=== PATIENT | male | born 1975 | race Caucasian/White ===

== ENCOUNTER 2021-04-26 10:17 | Emergency (ER) | payer OTHER, MEDICAID, SELFPAY ==
--- NOTE | ~2021-04-26 | XR_ITS ---
EXAMINATION: XR HAND/WRIST, LEFT CLINICAL INFORMATION: Nail through the thumb. COMPARISON: None TECHNIQUE: Three views. FINDINGS: There is a radiopaque foreign body/nail seen traversing the palmar aspect of the distal left thumb. No bony abnormality is seen. The joint spaces are normal. The rest of the left hand digits and the wrist is unremarkable. XR/XR hand wrist LT IMPRESSION: Radiopaque nail traversing the palmar aspect of left distal thumb. No bony abnormality seen.
[2021-04-26 10:22] VITALS: BP 128/83; PULSE 66; RESP 18; TEMP 37.1; O2SAT 94; BMI 22.8
--- NOTE | 2021-04-26 10:41 | ED.EXTPRO ---
HPI - Extremity Problem General Chief complaint: Extremity Injury, Upper Stated complaint: wound Time Seen by Provider: 04/26/21 10:40 Source: patient Mode of arrival: ambulatory Limitations: no limitations History of Present Illness HPI Narrative: Patient is a 45-year-old male with no significant past medical history who shot himself in the left thumb with a nail gun at work this morning. He can move the finger and has full sensitivity. He does state it is painful. Related Data Allergies Allergy/AdvReac Type Severity Reaction Status Date / Time codeine AdvReac Agitated Verified 04/26/21 10:25 Review of Systems Review of Systems: Yes all other systems are reviewed and are negative PMFSH Past Medical History Medical History Patient denies medical problems Social History Social History Advance Directives: No Advance Directives Information Provided: No Physical Exam Vital Signs: Vital Signs: Last Vital Signs Temp 98.7 F 04/26/21 10:22 Pulse 66 04/26/21 10:22 Resp 18 04/26/21 10:22 BP 128/83 04/26/21 10:22 Pulse Ox 94 04/26/21 10:22 Body Mass Index 22.8 Const: General: cooperative, healthy appearing, comfortable, no acute distress and well developed Orientation/consciousness: patient oriented x3 Limitations: no limitations Skin: Other: Left 1st digit has a nail traversing the palmar aspect of the distal them. Approximately 5 cm of a nail sticking out the and. Nail head is not in sight and is likely imbedded Neuro: General: patient oriented x3 Procedures Procedure Narrative Procedure Narrative: He cleaned and irrigated wound with Betadine and saline, digital block with 1% lidocaine, made a small incision around nail head at ventral aspect of the thumb and pulled nail all the way out. No complications, no bleeding. Patient tolerated procedure well. Cleaned again with Betadine, covered with sterile dressing. MDM - Extremity (Nontraumatic) Imaging Data left hand x-ray: Attestation: I personally reviewed and interpreted this imaging study as follows: Radiologist's impression: [address] [id number] ReportSigned Patient: Rayo Eden [facility]#: [id number]: 1975Acct:[id number]/Sex: 45 / MADM Date: 04/26/21Loc: EDAttending Dr: Ordering Physician: Tahmina Peck PA-C Date of Service: 04/26/21 Procedure(s): XR hand wrist LT Accession Number(s): [id number] cc: Tahmina Peck PA-C~ EXAMINATION: XR HAND/WRIST, LEFT CLINICAL INFORMATION: Nail through the thumb. COMPARISON: None TECHNIQUE: Three views. FINDINGS: There is a radiopaque foreign body/nail seen traversing the palmar aspect of the distal left thumb. No bony abnormality is seen. The joint spaces are normal. The rest of the left hand digits and the wrist is unremarkable. XR/XR hand wrist LT IMPRESSION: Radiopaque nail traversing the palmar aspect of left distal thumb. No bony abnormality seen. 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 Keep it clean and dry. You do not need to apply any special ointments. If it becomes painful her you sensation in the thumb or you notice red streaking going up her arm, please return to the emergency department or follow-up with her primary care doctor.
--- NOTE | 2021-04-26 12:10 | PC.NURSE ---
Pt has been soaking injured thumb in betadine and NS. tolerating removal well.
[2021-04-26] MEDS: Diphth,Pertus(ACell),Tet Adult 0.5 ML SYRINGE IM (12:41)
[2021-04-26] MEDS: Lidocaine HCl 1 % 20 ML VIAL 5 ML SUBCUT (12:41)
== END 2021-04-26 12:47 | disposition home or self-care (01) ==
PROVIDERS: Emergency Provider Emergency Medicine; PCP Internal Medicine
DX: S61.142A Puncture wound with foreign body of left thumb with damage to nail, initial encounter (principal); W29.4XXA Contact with nail gun, initial encounter; Y93.9 Activity, unspecified; Y92.9 Unspecified place or not applicable; Y99.0 Civilian activity done for income or pay
CPT/HCPCS: 96372; 20520; 73110; 73130; 90715; 99282

== ENCOUNTER 2021-07-24 23:06 | Inpatient (IN) | payer OTHER, SELFPAY ==
--- NOTE | 2021-07-25 | ECG_ITS ---
Test Reason : COCAINE INDEPENDENCE Blood Pressure : / mmHG Vent. Rate : 065 BPM Atrial Rate : 065 BPM P-R Int : 128 ms QRS Dur : 082 ms QT Int : 370 ms P-R-T Axes : 076 082 079 degrees QTc Int : 384 ms Normal sinus rhythm Nonspecific T wave abnormality Abnormal ECG No previous ECGs available Referred By: Praful Martinez Electronically Signed By:LAKESHA AMBROSIO MD
[2021-07-25 01:02] VITALS: BP 145/93; PULSE 71; RESP 20; TEMP 36.6; O2SAT 97
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
[2021-07-25 07:00] VITALS: BMI 24.6
[2021-07-25 09:21] VITALS: BP 133/81; PULSE 98; TEMP 35.8; O2SAT 98
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
[2021-07-25 14:49] LABS: MANUAL DIFF FLAG NO
[2021-07-25 15:02] LABS: Basophils Percent Auto 0.3 % (0-2); Eosinophils Absolute Auto 0.4 X10*3/uL (0.0-0.4); Eosinophils Percent Auto 4.4 % (0-4); Hematocrit 45.2 % (42-52); Hemoglobin 15.4 g/dl (14.0-18.0); Imm Gran Abs Auto 0.02 X10*3/uL (0.00-0.03); Imm Gran Pct Auto 0.2 % (0.0-0.4); Lymphocytes Absolute Auto 1.7 X10*3/uL (1.2-4.9); Mean Corpuscular HGB Conc 34.1 g/dl (31.0-36.0); Mean Corpuscular Hemoglobin 31.9 pg (27.0-33.0); Mean Corpuscular Volume 93.6 fL (80-98); Mean Platelet Volume 9.9 fL (9.4-12.4); Monocytes Absolute Auto 0.9 X10*3/uL (0.1-1.2); Monocytes Percent Auto 8.6 % (2-11); Neutrophils Percent Auto 69.5 % (45-73); Platelet Count 300 X10*3/uL (160-400); Red Blood Count 4.83 X10*6/uL (4.60-5.80); Red Cell Distribution Width 13.2 % (11.0-16.0); White Blood Count 10.1 X10*3/uL (4.8-10.8)
[2021-07-25 15:13] LABS: Alanine Aminotransferase 16 U/L (0-40); Albumin Level 3.9 g/dL (3.5-5.0); Alkaline Phosphatase 98 U/L (39-117); Anion Gap 10 (12-20); Aspartate Amino Transferase 18 U/L (5-37); Bilirubin Total < 0.2 mg/dL (0.0-1.0); Blood Urea Nitrogen 23 mg/dL (9-16); Calcium 9.3 mg/dL (8.4-10.2); Carbon Dioxide 31 mmol/L (22-29); Chloride 105 mmol/L (96-108); Cholesterol 131 mg/dL; Creatinine Clr Calc Pharmacy 81.3; Estimated Glomerular Filt Rate > 60; Glucose Random 67 mg/dL (60-115); HDL Cholesterol 37 mg/dL; LDL Cholesterol Calculated 40 mg/dl; Potassium 4.6 mmol/L (3.3-5.1); Sodium 141 mmol/L (135-145); Total Protein 6.8 g/dL (6.5-8.0); Triglycerides 271 mg/dL
[2021-07-25 15:28] LABS: TSH reflex Free T4 0.78 uIU/mL (0.32-4.0)
[2021-07-25 17:36] LABS: Folate 11.4 ng/mL (> or = 4.0); Vitamin B12 523 pg/mL (200-900)
[2021-07-26 06:00] VITALS: BP 128/77; PULSE 55; RESP 16; TEMP 36.4; O2SAT 98
--- NOTE | 2021-07-26 10:49 | PC.NURSE ---
Pt offered flu shot. Pt declined stating he already received it.
--- NOTE | 2021-07-26 10:54 | PM.IMCN ---
History of Present Illness Data of Consult Service Date: 07/26/21 Primary Care Provider: Unknown Physician HPI Reason for consult: Routine Medical Consult This is a who is admitted to the inpatient psych unit. Medical consultation requested for Medical history and physical per protocol. Patient is seen and examined on the inpatient psych unit. Patient thinks that he has colon cancer. He reports that for months he has had intermittent lower GI bleeding. He reports being constipated. He reports that he has a primary doctor who has scheduled him for a colonoscopy but that he missed it. He denies any weight loss, abdominal pain, nausea or vomiting. He denies any family history for colon cancer, but does endorse that his younger brother from lung Ca recently. Review of Systems Review of Systems: +rectal bleeding, no abdominal pain, nausea, vomiting; +constipation denies cp or sob denies [place], dizziness denies loss of appetite or weight loss +depression Yes all other systems are reviewed and are negative [facility] Medical History (Updated 07/26/21 @ 11:07 by Benji Aburto MD) Patient denies medical problems Pertinent family history: reports his younger brother of Lung Ca Surgical History (Updated 07/26/21 @ 11:02 by Benji Aburto MD) No pertinent past surgical history Social History Household Members: Significant Other and Children Household Members Other:: currently living at her parents house in [place] Housing: Homeless Do you presently have visiting nurse or other home services: No Patient Tobacco Use Status: Current everyday Tobacco user Tobacco use type: Cigarette Cigarette Packs Per Day: 0.5 Cigarettes Per Day: 10.0 Smoked in Last 30 Days: Yes e-Cigarette/Vaping Use: Never Used Patient Interested in Nicotine Replacement: No (I can quit without nicotine replacement) Patient Given Instructions on How to Stop Smoking: No (patient states I stopped today .) Second Hand Smoke Exposure: No Use of substances other than those prescribed or required for medical reasons: Yes Substance Use Type: Crack/Cocaine Substance Use Frequency: Daily Last Used Substance: Days (ago) Last Used Substance Other:: 07/24/2021 Currently Displaying Signs/Symptoms of Drug Intoxication Withdrawal: No Any prior treatment program specific to substance use: No Have you been hit, kicked, punched, or otherwise hurt by someone within the past year? If so, by whom?: No Do you feel safe in your current relationship?: Yes Is there a partner from a previous relationship who is making you feel unsafe now?: No Are you made to feel afraid or neglected: No Spiritism Healthcare Practices: I believe in GOD and he will help me . Advance Directives: No Do you have thoughts of harming others: None Do you have a plan to hurt others: No Plan Recently lost weight without trying: No How much weight loss: Not applicable Eating poorly because of decreased appetite: No Nutrition screen score: 0 Nutrition Risks: No Nutritional Risk Poor oral hygiene: No service: No Sexual orientation: Did not discuss Meds Allergies Allergy/AdvReac Type Severity Reaction Status Date / Time codeine AdvReac Agitated Verified 04/26/21 10:25 Active Medications: Current Medications Acetaminophen (Acetaminophen 325 Mg Tablet) 650 mg PO Q6H PRN PRN Reason: Headache/Pain Mild Scale (1-3) Al Hydroxide/Mg Hydroxide (Magnesium Hydrox/Alum Hydrox 30 Ml Oral.Susp) 30 ml PO Q6H PRN PRN Reason: Heartburn/Nausea Hydroxyzine HCl (Hydroxyzine Hcl 25 Mg Tablet) 25 mg PO BEDTIME PRN PRN Reason: Anxiety Lorazepam (Lorazepam 1 Mg Tablet) 1 mg PO TID PRN PRN Reason: Anxiety Magnesium Hydroxide (Milk Of Magnesia 30 Ml Oral.Susp) 30 ml PO DAILY PRN PRN Reason: Constipation Quetiapine Fumarate (Quetiapine Fumarate 25 Mg Tablet) 25 mg PO Q4H PRN PRN Reason: Anxiety Trazodone HCl (Trazodone Hcl 50 Mg Tablet) 50 mg PO BEDTIME PRN PRN Reason: Insomnia Physical Exam Vital Signs and Narrative: Vital Signs: Last Vital Signs Temp 97.6 F 07/26/21 06:00 Pulse 55 07/26/21 06:00 Resp 16 07/26/21 06:00 BP 128/77 07/26/21 06:00 Pulse Ox 98 07/26/21 06:00 Body Mass Index 24.6 Const: Other: Constitutional - Awake and Alert, No apparent distress Eyes - PERRLA, EOMI Cardiovascular - S1S2, RRR, No edema Respiratory - Normal lung expansion, Normal respiratory effort, No respiratory distress, CTA bilaterally Gastrointestinal - NT / ND; +BS; No rebound or guarding - No CVA tenderness Extremities - no calf tenderness bilaterally, no swelling Musculoskeletal - Normal inspection, normal ROM Skin - Warm/Dry Neurological - Alert & oriented x3, No focal deficit Psychological - Appropriate affect Results Labs CBC and Chem 7: 07/25/21 14:44 07/25/21 14:44 Labs: Laboratory Results - last 24 hr 07/25/21 07/25/21 07/25/21 14:44 14:44 14:44 MCV 93.6 MCH 31.9 MCHC 34.1 RDW 13.2 Plt Count 300 MPV 9.9 Immature Gran % (Auto) 0.2 Neut % (Auto) 69.5 Lymph % (Auto) 17.0 L [place] % (Auto) 8.6 Eos % (Auto) 4.4 H Baso % (Auto) 0.3 Lymph # (Auto) 1.7 Cecil # (Auto) 0.9 Eos # (Auto) 0.4 Baso # (Auto) 0.0 Abs Immat Gran (auto) 0.02 Absolute Neuts (auto) 7.0 Absolute Nucleated RBC 0.000 Nucleated RBC % (auto) 0.0 Anion Gap 10 L Estim Creat Clear Calc 81.3 Estimated GFR > 60 Random Glucose 67 Calcium 9.3 Total Bilirubin < 0.2 AST 18 ALT 16 Alkaline Phosphatase 98 Total Protein 6.8 Albumin 3.9 Triglycerides 271 Cholesterol 131 LDL Cholesterol, Calc 40 HDL Cholesterol 37 Vitamin B12 Folate TSH 0.78 07/25/21 14:44 MCV MCH MCHC RDW Plt Count MPV Immature Gran % (Auto) Neut % (Auto) Lymph % (Auto) Cecil % (Auto) Eos % (Auto) Baso % (Auto) Lymph # (Auto) Cecil # (Auto) Eos # (Auto) Baso # (Auto) Abs Immat Gran (auto) Absolute Neuts (auto) Absolute Nucleated RBC Nucleated RBC % (auto) Anion Gap Estim Creat Clear Calc Estimated GFR Random Glucose Calcium Total Bilirubin AST ALT Alkaline Phosphatase Total Protein Albumin Triglycerides Cholesterol LDL Cholesterol, Calc HDL Cholesterol Vitamin B12 523 Folate 11.4 TSH Assessment and Plan (1) Routine medical exam: Status: Acute This is a 46 yo M with a history of daily crack cocaine use but otherwise no significant PMH or past surgical history who is admitted to the inpatient psychiatric unit. Medical consultation for routine Medical H&P. Patient endorses constipation and intermittent rectal bleeding. He denies any current bleeding. He does endorse no BM for several days. He endorses that he has a PCP who has referred him for a colonoscopy but he missed the appointment. Currently denying active bleeding. H/H from yesterday within in normal limits. Would recommend to complete his psychiatric care and ensure that he as f/u with his outpatient team to complete his planned colonoscpy. If he has active lower GI bleeding or any symptoms of anemia -- would repeat a CBC and consider GI consult. In regards to his crack/cocaine abuse -- he has been counseled on its harm and advised cessation. Please reconsult if any questions. Thank you.
[2021-07-26 16:50] VITALS: BP 129/83; PULSE 66; TEMP 36.8
[2021-07-26] MEDS: buPROPion HCl XL 150 MG TAB.ER.24H PO (16:58)
--- NOTE | 2021-07-26 17:21 | P.PNPSI_ITS ---
Subjective Subjective Date of Service: 07/26/21 Reason For Visit: SI Subjective Notes: Conditional Voluntary Healthcare Proxy: No Guardianship: No Interim History: Patient has been stating he wants to get sober committed to trying to make things right with his girlfriend who was 5 months . Patient reports the auditory hallucinations none today not command. Mood depressed flat describes questionable history of shayy Side effects from medications: No Mental Status Exam Mental Status Exam Patient Appearance: Disheveled Patient Orientation: Person, Place, Time and Situation Level of Consciousness: Awake Patient Behavior: Dependent and Guarded Mood Description: Depressed, Anxious, Blunted and Apprehensive Affect Description: Depressed, Anxious and Apprehensive Ability to Follow Directions: Good Speech Pattern: Monotone Memory Description: Intact Hallucinations: Auditory (vague mumblings ) Delusions: Not Present Thought Content: positive for Preoccupation, positive for Suicidal Ideation (denies here unsafe if d/c) and negative for Homicidal Ideation Depressive Symptoms: Increased Anxiety, Difficulty Sleeping, Feelings of Worthlessness, Hopelessness, Feelings of Guilt, Thoughts of /Suicide and Difficulty Concentrating Judgement: Fair Diagnostics Vital Signs (24Hr): Vital Signs - 24 hr 07/26/21 06:00 Temperature 97.6 F Pulse Rate 55 Respiratory Rate 16 Blood Pressure 128/77 Pulse Oximetry 98 Body Mass Index 24.6 Labs Results: 07/25/21 14:44 07/25/21 14:44 Labs: Laboratory Results - last 48 hr 07/25/21 07/25/21 07/25/21 14:44 14:44 14:44 WBC 10.1 RBC 4.83 Hgb 15.4 Hct 45.2 MCV 93.6 MCH 31.9 MCHC 34.1 RDW 13.2 Plt Count 300 MPV 9.9 Immature Gran % (Auto) 0.2 Neut % (Auto) 69.5 Lymph % (Auto) 17.0 L [place] % (Auto) 8.6 Eos % (Auto) 4.4 H Baso % (Auto) 0.3 Lymph # (Auto) 1.7 [place] # (Auto) 0.9 Eos # (Auto) 0.4 Baso # (Auto) 0.0 Abs Immat Gran (auto) 0.02 Absolute Neuts (auto) 7.0 Absolute Nucleated RBC 0.000 Nucleated RBC % (auto) 0.0 Sodium 141 Potassium 4.6 Chloride 105 Carbon Dioxide 31 H Anion Gap 10 L BUN 23 H Creatinine 1.05 Estim Creat Clear Calc 81.3 Estimated GFR > 60 Random Glucose 67 Calcium 9.3 Total Bilirubin < 0.2 AST 18 ALT 16 Alkaline Phosphatase 98 Total Protein 6.8 Albumin 3.9 Triglycerides 271 Cholesterol 131 LDL Cholesterol, Calc 40 HDL Cholesterol 37 Vitamin B12 Folate TSH 0.78 07/25/21 14:44 WBC RBC Hgb Hct MCV MCH MCHC RDW Plt Count MPV Immature Gran % (Auto) Neut % (Auto) Lymph % (Auto) [place] % (Auto) Eos % (Auto) Baso % (Auto) Lymph # (Auto) [place] # (Auto) Eos # (Auto) Baso # (Auto) Abs Immat Gran (auto) Absolute Neuts (auto) Absolute Nucleated RBC Nucleated RBC % (auto) Sodium Potassium Chloride Carbon Dioxide Anion Gap BUN Creatinine Estim Creat Clear Calc Estimated GFR Random Glucose Calcium Total Bilirubin AST ALT Alkaline Phosphatase Total Protein Albumin Triglycerides Cholesterol LDL Cholesterol, Calc HDL Cholesterol Vitamin B12 523 Folate 11.4 TSH Medications Medications Current Medications Acetaminophen (Acetaminophen 325 Mg Tablet) 650 mg PO Q6H PRN PRN Reason: Headache/Pain Mild Scale (1-3) Al Hydroxide/Mg Hydroxide (Magnesium Hydrox/Alum Hydrox 30 Ml Oral.Susp) 30 ml PO Q6H PRN PRN Reason: Heartburn/Nausea Bupropion HCl (Bupropion Hcl Xl 150 Mg Tab.Er.24h) 150 mg PO DAILY [facility] Last Admin: 07/26/21 16:58 Dose: 150 mg Documented by: Hydroxyzine HCl (Hydroxyzine Hcl 25 Mg Tablet) 25 mg PO BEDTIME PRN PRN Reason: Anxiety Lorazepam (Lorazepam 1 Mg Tablet) 1 mg PO TID PRN PRN Reason: Anxiety Magnesium Hydroxide (Milk Of Magnesia 30 Ml Oral.Susp) 30 ml PO DAILY PRN PRN Reason: Constipation Quetiapine Fumarate (Quetiapine Fumarate 25 Mg Tablet) 25 mg PO Q4H PRN PRN Reason: Anxiety Trazodone HCl (Trazodone Hcl 50 Mg Tablet) 50 mg PO BEDTIME PRN PRN Reason: Insomnia Allergies Allergies Allergy/AdvReac Type Severity Reaction Status Date / Time codeine AdvReac Agitated Verified 04/26/21 10:25 Assessment & Plan Assessment & Plan (1) Bipolar 1 disorder, depressed, severe: Status: Acute Code(s): F31.4 - Bipolar disorder, current episode depressed, severe, without psychotic features Assessment and Plan: depressed given literature start wellbutrin trileptal difficult to tease cocaine effects and bipolar dx monitor safety (2) Cocaine use disorder, moderate, in controlled environment, dependence: Status: Acute Code(s): F14.20 - Cocaine dependence, uncomplicated Assessment and Plan: refer to css encourage sobriety Greater than 50% of the session was spent on counseling and/or coordination of care Reason for contiued inpatient stay Substantial Risk for: harm to self and rapid decompensation
[2021-07-26] MEDS: OXcarbazepine 300 MG TABLET PO (22:38)
[2021-07-27 06:00] VITALS: BP 136/63; PULSE 63; TEMP 36.1; O2SAT 98
[2021-07-27] MEDS: buPROPion HCl XL 150 MG TAB.ER.24H PO (08:54)
[2021-07-27 16:45] VITALS: BP 128/75; PULSE 70; TEMP 36.1; O2SAT 98
--- NOTE | 2021-07-27 19:36 | PC.NURSE ---
Pt put in a Three Day Notice on Friday 07/27 up on Tuesday 07/31.
[2021-07-27] MEDS: OXcarbazepine 300 MG TABLET PO (19:59)
--- NOTE | 2021-07-27 22:20 | HO.PSYCHPN ---
Subjective Subjective Date of Service: 07/27/21 Reason For Visit: SI Subjective Notes: Conditional Voluntary Healthcare Proxy: No Guardianship: No Interim History: Patient withdrawn depressed ruminating continues to state he is hoping for sobriety agreeable to Trileptal felt to was helpful last night intermittent SI if not in this setting Medication Compliance: Yes Mental Status Exam Mental Status Exam Patient Appearance: Disheveled Patient Orientation: Person, Place, Time and Situation Level of Consciousness: Awake Patient Behavior: Dependent and Guarded Mood Description: Depressed, Anxious, Blunted and Apprehensive Affect Description: Depressed, Anxious and Apprehensive Ability to Follow Directions: Good Speech Pattern: Monotone Memory Description: Intact Hallucinations: Auditory (vague mumblings ) Delusions: Not Present Thought Content: positive for Preoccupation, positive for Suicidal Ideation (denies here unsafe if d/c) and negative for Homicidal Ideation Depressive Symptoms: Increased Anxiety, Difficulty Sleeping, Feelings of Worthlessness, Hopelessness, Feelings of Guilt, Thoughts of /Suicide and Difficulty Concentrating Judgement: Fair Diagnostics Vital Signs (24Hr): Vital Signs - 24 hr 07/27/21 06:00 07/27/21 16:45 Temperature 97.0 F 97.0 F Pulse Rate 63 70 Blood Pressure 136/63 128/75 Pulse Oximetry 98 98 Body Mass Index 24.6 Labs Results: 07/25/21 14:44 07/25/21 14:44 Medications Medications Current Medications Acetaminophen (Acetaminophen 325 Mg Tablet) 650 mg PO Q6H PRN PRN Reason: Headache/Pain Mild Scale (1-3) Al Hydroxide/Mg Hydroxide (Magnesium Hydrox/Alum Hydrox 30 Ml Oral.Susp) 30 ml PO Q6H PRN PRN Reason: Heartburn/Nausea Bupropion HCl (Bupropion Hcl Xl 150 Mg Tab.Er.24h) 150 mg PO DAILY [facility] Last Admin: 07/27/21 08:54 Dose: 150 mg Documented by: Hydroxyzine HCl (Hydroxyzine Hcl 25 Mg Tablet) 25 mg PO BEDTIME PRN PRN Reason: Anxiety Lorazepam (Lorazepam 1 Mg Tablet) 1 mg PO TID PRN PRN Reason: Anxiety Magnesium Hydroxide (Milk Of Magnesia 30 Ml Oral.Susp) 30 ml PO DAILY PRN PRN Reason: Constipation Oxcarbazepine (Oxcarbazepine 300 Mg Tablet) 300 mg PO BEDTIME [facility] Last Admin: 07/27/21 19:59 Dose: 300 mg Documented by: Quetiapine Fumarate (Quetiapine Fumarate 25 Mg Tablet) 25 mg PO Q4H PRN PRN Reason: Anxiety Allergies Allergies Allergy/AdvReac Type Severity Reaction Status Date / Time codeine AdvReac Agitated Verified 04/26/21 10:25 trazodone AdvReac Swelling Verified 07/27/21 16:32 Assessment & Plan Assessment & Plan (1) Bipolar 1 disorder, depressed, severe: Status: Acute Code(s): F31.4 - Bipolar disorder, current episode depressed, severe, without psychotic features Assessment and Plan: depressed given literature start wellbutrin trileptal difficult to tease cocaine effects and bipolar dx monitor safety Increase Trileptal to 300 b.i.d. continue Wellbutrin 150 Discharge planning (2) Cocaine use disorder, moderate, in controlled environment, dependence: Status: Acute Code(s): F14.20 - Cocaine dependence, uncomplicated Assessment and Plan: refer to [facility] encourage sobriety Greater than 50% of the session was spent on counseling and/or coordination of care Reason for contiued inpatient stay Substantial Risk for: harm to self and rapid decompensation
[2021-07-28 08:51] VITALS: BP 123/65; PULSE 57; RESP 18; TEMP 36.8; O2SAT 97
[2021-07-28] MEDS: buPROPion HCl XL 150 MG TAB.ER.24H PO (08:54)
[2021-07-28] MEDS: OXcarbazepine 300 MG TABLET PO ×2 (08:54→20:02)
[2021-07-28 16:20] VITALS: BP 136/84; PULSE 70; TEMP 36.3; O2SAT 97
[2021-07-28] MEDS: QUEtiapine Fumarate 25 MG TABLET PO (20:02)
--- NOTE | 2021-07-28 22:32 | HO.PSYCHPN ---
Subjective Subjective Date of Service: 07/28/21 Reason For Visit: SI Subjective Notes: [place] Warning, Conditional Voluntary and 3 Day Healthcare Proxy: No Guardianship: No Interim History: Patient stating he feels calmer improved with current medication [place] warning again given patient has put in 3 day notice he is excepting need for outpatient treatment Mental Status Exam Mental Status Exam Patient Appearance: Disheveled Patient Orientation: Person, Place, Time and Situation Level of Consciousness: Awake Patient Behavior: Dependent and Guarded Mood Description: Depressed, Anxious, Blunted and Apprehensive Affect Description: Depressed, Anxious and Apprehensive Ability to Follow Directions: Good Speech Pattern: Monotone Memory Description: Intact Hallucinations: Auditory (vague mumblings ) Delusions: Not Present Thought Content: positive for Preoccupation, positive for Suicidal Ideation (denies here unsafe if d/c) and negative for Homicidal Ideation Depressive Symptoms: Increased Anxiety, Difficulty Sleeping, Feelings of Worthlessness, Hopelessness, Feelings of Guilt and Difficulty Concentrating Judgement: Fair Judgement and Insight: Now denying active self-harm accepting need for treatment Diagnostics Vital Signs (24Hr): Vital Signs - 24 hr 07/28/21 08:51 07/28/21 16:20 Temperature 98.3 F 97.4 F Pulse Rate 57 70 Respiratory Rate 18 Blood Pressure 123/65 136/84 Pulse Oximetry 97 97 Body Mass Index 24.6 Labs Results: 07/25/21 14:44 07/25/21 14:44 Medications Medications Current Medications Acetaminophen (Acetaminophen 325 Mg Tablet) 650 mg PO Q6H PRN PRN Reason: Headache/Pain Mild Scale (1-3) Al Hydroxide/Mg Hydroxide (Magnesium Hydrox/Alum Hydrox 30 Ml Oral.Susp) 30 ml PO Q6H PRN PRN Reason: Heartburn/Nausea Bupropion HCl (Bupropion Hcl Xl 150 Mg Tab.Er.24h) 150 mg PO DAILY [facility] Last Admin: 07/28/21 08:54 Dose: 150 mg Documented by: Hydroxyzine HCl (Hydroxyzine Hcl 25 Mg Tablet) 25 mg PO BEDTIME PRN PRN Reason: Anxiety Lorazepam (Lorazepam 1 Mg Tablet) 1 mg PO TID PRN PRN Reason: Anxiety Magnesium Hydroxide (Milk Of Magnesia 30 Ml Oral.Susp) 30 ml PO DAILY PRN PRN Reason: Constipation Oxcarbazepine (Oxcarbazepine 300 Mg Tablet) 300 mg PO BID [facility] Last Admin: 07/28/21 20:02 Dose: 300 mg Documented by: Quetiapine Fumarate (Quetiapine Fumarate 25 Mg Tablet) 25 mg PO Q4H PRN PRN Reason: Anxiety Last Admin: 07/28/21 20:02 Dose: 25 mg Documented by: Allergies Allergies Allergy/AdvReac Type Severity Reaction Status Date / Time codeine AdvReac Agitated Verified 04/26/21 10:25 trazodone AdvReac Swelling Verified 07/27/21 16:32 Assessment & Plan Assessment & Plan (1) Bipolar 1 disorder, depressed, severe: Status: Acute Code(s): F31.4 - Bipolar disorder, current episode depressed, severe, without psychotic features Assessment and Plan: continue wellbutrin trileptal difficult to tease cocaine effects and bipolar dx monitor safety Trileptal to 300 b.i.d. continue Wellbutrin 150 Discharge planning (2) Cocaine use disorder, moderate, in controlled environment, dependence: Status: Acute Code(s): F14.20 - Cocaine dependence, uncomplicated Assessment and Plan: refer to [facility] encourage sobriety Greater than 50% of the session was spent on counseling and/or coordination of care Reason for contiued inpatient stay Substantial Risk for: harm to self and rapid decompensation
[2021-07-29 06:00] VITALS: BP 100/51; PULSE 56; RESP 16; TEMP 36.3; O2SAT 98
[2021-07-29] MEDS: OXcarbazepine 300 MG TABLET PO (08:41)
[2021-07-29] MEDS: buPROPion HCl XL 150 MG TAB.ER.24H PO (08:41)
--- NOTE | 2021-07-29 11:25 | PM.PSYDC ---
DS: Providers Provider Date of admission: 07/24/21 23:06 Primary care physician: Unknown Physician Consults: 07/25/21 14:19 Consult to Hospitalist Routine Consulting Provider: Hospitalist Reason For Exam: admission physical ? gi bleed cocaine dependance DS: Diagnosis Discharge Diagnosis (1) Bipolar 1 disorder, depressed, severe: Status: Acute (2) Cocaine use disorder, moderate, in controlled environment, dependence: Status: Acute Data Data Completed and Pending Completed studies during hospitalization [Text1]: 07/25/21 07/25/21 07/25/21 14:44 14:44 14:44 WBC 10.1 RBC 4.83 Hgb 15.4 Hct 45.2 MCV 93.6 MCH 31.9 MCHC 34.1 RDW 13.2 Plt Count 300 MPV 9.9 Immature Gran % (Auto) 0.2 Neut % (Auto) 69.5 Lymph % (Auto) 17.0 L [place] % (Auto) 8.6 Eos % (Auto) 4.4 H Baso % (Auto) 0.3 Lymph # (Auto) 1.7 [place] # (Auto) 0.9 Eos # (Auto) 0.4 Baso # (Auto) 0.0 Abs Immat Gran (auto) 0.02 Absolute Neuts (auto) 7.0 Absolute Nucleated RBC 0.000 Nucleated RBC % (auto) 0.0 Sodium 141 Potassium 4.6 Chloride 105 Carbon Dioxide 31 H Anion Gap 10 L BUN 23 H Creatinine 1.05 Estim Creat Clear Calc 81.3 Estimated GFR > 60 Random Glucose 67 Calcium 9.3 Total Bilirubin < 0.2 AST 18 ALT 16 Alkaline Phosphatase 98 Total Protein 6.8 Albumin 3.9 Triglycerides 271 Cholesterol 131 LDL Cholesterol, Calc 40 HDL Cholesterol 37 Vitamin B12 Folate TSH 0.78 07/25/21 14:44 WBC RBC Hgb Hct MCV MCH MCHC RDW Plt Count MPV Immature Gran % (Auto) Neut % (Auto) Lymph % (Auto) [place] % (Auto) Eos % (Auto) Baso % (Auto) Lymph # (Auto) [place] # (Auto) Eos # (Auto) Baso # (Auto) Abs Immat Gran (auto) Absolute Neuts (auto) Absolute Nucleated RBC Nucleated RBC % (auto) Sodium Potassium Chloride Carbon Dioxide Anion Gap BUN Creatinine Estim Creat Clear Calc Estimated GFR Random Glucose Calcium Total Bilirubin AST ALT Alkaline Phosphatase Total Protein Albumin Triglycerides Cholesterol LDL Cholesterol, Calc HDL Cholesterol Vitamin B12 523 Folate 11.4 TSH DS: Summary Time Spent with Patient Time attestation: Total time spent providing and/or coordinating discharge services: Discharge Plan Discharge Referrals: Pritesh Velazquez MD [Physician] - 07/31/21 1:00 pm (IN OFFICE)
--- NOTE | 2021-07-29 11:30 | HO.PSYCHPN ---
Subjective Subjective Date of Service: 07/29/21 Reason For Visit: SI Interim History: met with patient who reports feeling much better; he says his mood is good and that depression is gone. He denies any SI or HI; he says he temporarily felt SI prior to admission since he was worried his girlfriend was going to leave him, but such thoughts are fully resolved; he says he and his girlfriend are reconciled and he's excited to get out, get to his pending job (already lined up) and make money for their coming baby. Pt denies any AH; he says maybe he had some while on cocaine, but he's not sure he if he did and they remain resolved. Pt reports he's sleeping well; he feels optimistic about staying sober saying he does not need cocaine and that it only gets him in trouble. Pt reports medications are working well and he denies any med side-effects and he wants to continue taking. Says he notices that he's less irritable, more calm and that his father and that others notice too. Pt has 3 day notice in; asks if he can be discharged today to start [employer] and will stay at his brothers house. Team feels good about dc today, including ОЛЕГ Valenzuela; dr. martinez agrees pt appropriate for discharge; will proceed. . Mental Status Exam Mental Status Exam Narrative: Patient Appearance:?casual cloths, unkempt hair, pichardo but adequate hygiene Patient Orientation:?Person, Place, Time and Situation Level of Consciousness:?Awake Patient Behavior:?calm, friendly, cooperative Mood Description:? good Affect Description:?congruent Ability to Follow Directions:?Good Speech Pattern:?WNL; not pressured Memory Description:?Intact Hallucinations:?Auditory : denies Delusions:?Not Present Thought Content:?denies SI/HI; on getting job, seeing girlfriend, planning for new baby Judgement and Insight:?fair Diagnostics Vital Signs (24Hr): Vital Signs - 24 hr 07/28/21 16:20 07/29/21 06:00 Temperature 97.4 F 97.3 F Pulse Rate 70 56 Respiratory Rate 16 Blood Pressure 136/84 100/51 L Pulse Oximetry 97 98 Body Mass Index 24.6 Labs Results: 07/25/21 14:44 07/25/21 14:44 Medications Medications Current Medications Acetaminophen (Acetaminophen 325 Mg Tablet) 650 mg PO Q6H PRN PRN Reason: Headache/Pain Mild Scale (1-3) Al Hydroxide/Mg Hydroxide (Magnesium Hydrox/Alum Hydrox 30 Ml Oral.Susp) 30 ml PO Q6H PRN PRN Reason: Heartburn/Nausea Bupropion HCl (Bupropion Hcl Xl 150 Mg Tab.Er.24h) 150 mg PO DAILY [facility] Last Admin: 07/29/21 08:41 Dose: 150 mg Documented by: Hydroxyzine HCl (Hydroxyzine Hcl 25 Mg Tablet) 25 mg PO BEDTIME PRN PRN Reason: Anxiety Lorazepam (Lorazepam 1 Mg Tablet) 1 mg PO TID PRN PRN Reason: Anxiety Magnesium Hydroxide (Milk Of Magnesia 30 Ml Oral.Susp) 30 ml PO DAILY PRN PRN Reason: Constipation Oxcarbazepine (Oxcarbazepine 300 Mg Tablet) 300 mg PO BID [facility] Last Admin: 07/29/21 08:41 Dose: 300 mg Documented by: Quetiapine Fumarate (Quetiapine Fumarate 25 Mg Tablet) 25 mg PO Q4H PRN PRN Reason: Anxiety Last Admin: 07/28/21 20:02 Dose: 25 mg Documented by: Allergies Allergies Allergy/AdvReac Type Severity Reaction Status Date / Time codeine AdvReac Agitated Verified 04/26/21 10:25 trazodone AdvReac Swelling Verified 07/27/21 16:32 Assessment & Plan Assessment & Plan (1) Bipolar 1 disorder, depressed, severe: Status: Acute Code(s): F31.4 - Bipolar disorder, current episode depressed, severe, without psychotic features Assessment and Plan: continue wellbutrin trileptal difficult to tease cocaine effects and bipolar dx monitor safety Trileptal to 300 b.i.d. continue Wellbutrin 150 Discharge planning (2) Cocaine use disorder, moderate, in controlled environment, dependence: Status: Acute Code(s): F14.20 - Cocaine dependence, uncomplicated Assessment and Plan: refer to [facility] encourage sobriety Assessment and Plan: impression/plan: handbook writer meeting pt today; covered by dr. Martinez on admission met with patient who reports feeling much better; he says his mood is good and that depression is gone. He denies any SI or HI; he says he temporarily felt SI prior to admission since he was worried his girlfriend was going to leave him, but such thoughts are fully resolved; he says he and his girlfriend are reconciled and he's excited to get out, get to his pending job (already lined up) and make money for their coming baby. Pt denies any AH; he says maybe he had some while on cocaine, but he's not sure he if he did and they remain resolved. Pt reports he's sleeping well; he feels optimistic about staying sober saying he does not need cocaine and that it only gets him in trouble. Pt reports medications are working well and he denies any med side-effects and he wants to continue taking. Says he notices that he's less irritable, more calm and that his father and that others notice too. Pt has 3 day notice in; asks if he can be discharged today to start [employer] and will stay at his brothers house. Team feels good about dc today, including ОЛЕГ Valenzuela; dr. martinez agrees pt appropriate for discharge; will proceed. . Greater than 50% of the session was spent on counseling and/or coordination of care Reason for contiued inpatient stay Substantial Risk for: stable for discharge
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
[2021-07-29] MEDS: Naloxone HCl Nasal TAKE HOME 4 MG SPRAY NOSTRILALT (12:42)
== END 2021-07-29 13:10 | disposition home or self-care (01) | DRG 753 ==
PROVIDERS: Psychiatry & Neurology Psychiatry; Admitting Provider Psychiatry & Neurology Psychiatry; Visit Provider Psychiatry & Neurology Psychiatry
DX: F31.9 Bipolar disorder, unspecified (principal); R45.851 Suicidal ideations; F14.20 Cocaine dependence, uncomplicated; F43.25 Adjustment disorder with mixed disturbance of emotions and conduct; F17.210 Nicotine dependence, cigarettes, uncomplicated; Z59.00 Homelessness unspecified; Z88.5 Allergy status to narcotic agent; Z79.899 Other long term (current) drug therapy
CPT/HCPCS: 36415; 80053; 80061; 82607; 82746; 84443; 85025; 93005